=== PATIENT | female | born 1950 | race Caucasian/White ===

== ENCOUNTER → 2021-06-09 | Outpatient (CLI) | payer MEDICARE, BC ==
--- NOTE | 2021-06-09 11:36 | KCIC ---
EXAM: Lumbar spine MRI without contrast. HISTORY: Right side. Back pain. TECHNIQUE: Multiplanar, multisequence magnetic resonance imaging of the lumbar spine was performed wi thout contrast. COMPARISON: 10/05/2012. FINDINGS: There is a moderate acute or subacute compression fracture of T11. There is 3 mm retropulsi on of the posterior superior cortex into the central canal, with minimal associated central canal carlos enrique nosis. No additional acute or subacute fracture is seen. There is S-shaped lumbar scoliosis. There is 4 mm grade 1 anterolisthesis of L4 on L5. There is 2 mm retrolisthesis of L2 on L3. There is degenerative endplate remodeling with disc space narrowing and o steophytosis primarily at L5-S1. There is no suspicious osseous lesion. There are few benign osseous hemangiomas. There is a small Tarlov cyst within the sacral canal. The conus terminates at L1. There are small simple cyst within the left kidney. Follow-up is not routinely performed for simple c ysts. There is a suspected right extrarenal pelvis. At T12-L1, there is a shallow left paracentral disc protrusion. There is no stenosis. At L1-L2, there is mild bilateral facet arthropathy. There is no stenosis. At L2-L3, there is a disc bulge and endplate remodeling. There is mild right and mild to moderate lef t facet arthropathy. There is hypertrophy of the ligamentum flavum. There is mild retrolisthesis. The re is mild bilateral foraminal stenosis. There is mild central canal stenosis. At L3-L4, there is a disc bulge and endplate remodeling. There is moderate pleural facet arthropathy. There is hypertrophy of the ligamentum flavum. There is mild left foraminal stenosis. There is mild central canal stenosis. At L4-L5, there is a disc bulge and endplate remodeling. There is moderate to severe bilateral facet arthropathy. There is hypertrophy of the ligamentum flavum. There is grade 1 anterolisthesis. There i s mild bilateral foraminal stenosis. There is moderate central canal stenosis. At L5-S1, there is a posterior central disc protrusion and right lateral recess to extra foraminal di sc protrusion superimposed on a disc bulge and endplate osteophytosis. There is mild right facet arth ropathy. There is moderate right and mild left foraminal stenosis. IMPRESSION: 1. Moderate acute or subacute compression fracture of T11. There is minimal retropulsion of the conrad x and central canal stenosis at this level. 2. Multilevel degenerative change involving the lumbar spine, described in detail above. This results in stenosis at the aforementioned levels. Electronically signed by: Yessenia Winkler MD (06/09/2021 11:33 AM) [id number]
== END ==
LOC: KCIC MRI 09:58
PROVIDERS: ATTEND Physician Assistant Medical
DX: M47.816 Spondylosis without myelopathy or radiculopathy, lumbar region (principal); M48.54XA Collapsed vertebra, not elsewhere classified, thoracic region, initial encounter for fracture; M51.27 Other intervertebral disc displacement, lumbosacral region; M48.8X7 Other specified spondylopathies, lumbosacral region; G96.191 Perineural cyst; M48.07 Spinal stenosis, lumbosacral region; M43.16 Spondylolisthesis, lumbar region; M41.86 Other forms of scoliosis, lumbar region; M54.41 Lumbago with sciatica, right side
CPT/HCPCS: 72148

== ENCOUNTER → 2021-06-19 | Outpatient (CLI) | payer MEDICARE, BC ==
[~2021-06-19] MED LIST: ASCO500C PO; CELE100C PO; CYCL10TA19 PO; LOSA-73 PO; OMEP40CA7 PO; SUCR1TAB PO; TRAM50TA PO; VALA500T9 PO; ZINC50TA39 PO; [UNRECOGNIZED DRUG - CODE] PO; muscle relaxer PO
--- NOTE | 2021-06-19 14:27 | PDOC1 ---
INITIAL PAIN CONSULT DATE OF SERVICE: DOS: DATE: 06/19/21 TIME: 14:15 CHIEF COMPLAINT: Chief Complaint: Low back and right lower extremity pain HISTORY OF PRESENT ILLNESS: 70-year-old female presents with history of pain low back right lower extremity for about 1 month and she noticed the pain beginning on May 19, 2021 when she was helping a friend of hers who has a walker and was lifting the walker ove r the backseat of a car, standing position reaching forward and felt a significant pain in the low back radiating to the right lower extremity. Patient reports that that she had no significant pain like that prior to this incident and has been significant since then. Patient reports her leg now gets weak on the right side worse with walking standing changing positions bending forward and lifting up repetitive motions or stooping patient reports it wakes her from sleep at night multiple times does not affect her bowel bladder control but does affect her ability to walk although she is not using any assistive devices to ambulate. Patient reports pain is constant sharp stabbing alternating in the back throbbing and shooting in the center in the low back radiating into the right leg posterior gluteus lateral thigh anterior thigh medial thigh posterior thigh and posterior calf. Patient also ports she has pain on the top of the foot on the right side. Patient reports no loss of motor function with significant fatigability of the right leg feels unstable when walking more than about 10minutes because her right leg becomes weak at that p oint. Patient have an MRI scan showing a acute to subacute compression fracture of T11 with a 3 mm retropulsion of the superior posterior cortex into the central canal also does bulging and endplate remodeling at L4-5 as well as L5-S1 with posterior central disc protrusion right lateral recess extraforaminal disc protrusion superimposed on disc bulge and endplate osteophytosis at L5-S1. Patient reports no bowel or bladder incontinence. Patient's been doing chiropractic treatments which are helpful but only temporary also doing stretching strength and exercise on her own at home which again are helpful but only very temporary. Patient been taking [id number] Tylenol which has not been significantly decreasing the pain. PAST MEDICAL HISTORY: PMH: Arthritis, hypertension, headaches, skin cancer, hypothyroidism PREVIOUS SURGERIES: Past Surgical Hx: Thyroidectomy, tonsillectomy, , skin cancer excisions CURRENT MEDICATIONS: Current Meds: Active Scripts Medications Dose Route/Sig Max Daily Dose Days Date Category Zinc 50 Mg Tablet 1 Tab PO DAILY 30 06/19/21 Reported Vitamin C (Ascorbic Acid) 500 Mg Capsule.er 1 Cap PO DAILY 30 06/19/21 Reported Maximum D3 (Cholecalciferol (Vitamin D3)) 325 Mcg Capsule 325 Mcg PO DAILY 06/19/21 Reported [muscle relaxer] Unknown Dose PO HS 06/19/21 Reported Losartan Potassium 50 Mg Tablet 50 Mg PO DAILY 06/19/21 Reported ALLERGIES; Allergies: Coded Allergies: propoxyphene (Verified Allergy, Intermediate, Rash, 06/19/21) FAMILY HISTORY: Family Hx: Lymphoma, osteoarthritis SOCIAL HISTORY: Social Hx: Patient does not drink alcohol does not smoke not use any illegal illicit recreational drugs is lives with her spouse lives locally in [facility] REVIEW OF SYSTEMS: ROS: Positive for those items mentioned in history of present illness, all systems are reviewed, otherwise negative ,and are complete full and well-documented on patient's chart. PHYSICAL EXAM: VS: Pressure is 117/82 pulse 79 respirations 18 temperature 97.6 F height is 5 feet 3 inches weight is 177 pounds PE: PHYSICAL EXAMINATION: GENERAL: The patient is awake, alert, oriented, appropriate, very pleasant in demeanor HEENT: Shows normocephalic, atraumatic. Extraocular movements are intact and symmetrical. Oral cavity: Mucous membranes moist and pink. Dentition is intact. NECK: Shows anterior throat supple without palpable lymphadenopathy noted. Swallow reflex symmetrical. CHEST: Shows normal on inspection. Breath sounds are clear bilaterally, distant but no rales rhonchi or wheezes auscultated. HEART: Shows S1, S2 clear. No murmurs auscultated. ABDOMEN: Soft, nontender, nondistended. No palpable organomegaly is noted. BACK: Shows spine grossly in the midline. Normal-appearing cervical lordotic curvature. There is increased thoracic kyphosis, with moderate tenderness with palpation over the inferior aspect spinous processes but without radiation, some mild flattening of the lumbar lordotic curvature. Lumbar paraspinous muscles show symmetrical on inspection, on palpation shows some moderate tenderness diffusely throughout the upper, middle and lower distribution of the paraspinous muscles bilaterally and also into the lower thoracic paraspinous musculature, firm and tender, but without specific trigger points, without radiation of pain. The patient has good rotational motion of the lumbar spine, both laterally as well as extension and flexion without significant difficulty. No tenderness over the spinous processes, sacrum or sacroiliac regions. EXTREMITIES: Lower extremities show deep tendon reflexes 2 in the patellar and tendo calcaneus tendons. Motor exam is 4 on a scale of 5 with right dorsiflexion, extension, quadriceps and hamstring flexion and 5/5 on the left. Peripheral pulses are 1+ posterior tibial. No peripheral edema is noted bilaterally. Lower extremities are warm and dry to touch, equal in color and appearance. Straight leg raise noted to be positive on the right about 45 degrees, left side is negative. Gaenslen's and Dutch's maneuvers are negative bilaterally. The patient is able to stand, such as difficulty trying to stand on her toes and put all of her weight on her right leg walks with a slight favoring gait does appear to favor the right lower extremity but does not use any assistive vices to ambulate such as canes or walkers. SKIN: Shows warm and dry, good turgor. No edema. No sores, rashes or bruising throughout. IMPRESSION: Impression: 70-year-old female with 1 month history increasing pain low back right lower extremity radicular fashion, with T11 vertebral fracture as well. MRI scan lumbar spine as noted Arthritis Hypertension Skin cancer Osteoporosis Hypothyroidism Plan: Options were discussed with the patient including conservative medical managements physical therapies and interventional techniques. Patient like to pursue interventional techniques. We discussed a lumbar epidural steroid injection using descriptions as well as anatomical models to describe the procedure. Risks were discussed including but not limited to: Bleeding, infection, possibility of epidural hematoma and subsequent neurological compromise, dural puncture, headaches, spinal cord and/or nerve damage, side effects of steroid medication, and poor results regarding pain control. Patient understands and wished to proceed. Patient return to clinic in approximately 2 weeks for follow-up, was counseled as to return appointment, activity level, and side effect to be aware of. Procedure is lumbar epidural steroid injection under local anesthetic using sterile prep and drape at the L4-5 level using C-arm fluoroscopic guidance in both AP and lateral views medications injected is 120 mg Depo-Medrol +10mL preservative-free normal saline and 2 mL contrast- condition at discharge is stable patient tolerated procedure well had no complications. TIKI FERNANDEZ MD Jun 19, 2021 14:26
--- NOTE | 2021-06-19 14:28 | PDOC4 ---
Procedure Note: ICD 10 Code: ICD 10 Code: M54.16 M51.36 M48.06 Procedure Note: Patient was consented for lumbar epidural steroid injection with fluoroscopic guidance. Risks were discussed including but not limited to: Bleeding, infection, possibility of epidural hematoma and subsequent neurological compromise, dural puncture, headaches, spinal cord and/or nerve damage, side effects of steroid medication, and poor results regarding pain control. Patient understands and wished to proceed. Procedure is lumbar epidural steroid injection under local anesthetic using ster ile prep and drape at the L4-5 level using C-arm fluoroscopic guidance in both AP and lateral views medications injected is 120 mg Depo-Medrol +10mL preservative-free normal saline and 2 mL contrast- condition at discharge is stable patient tolerated procedure well had no complications. TIKI FERNANDEZ MD Jun 19, 2021 14:28
== END | disposition home or self-care (01) ==
LOC: PNCL 10:00
PROVIDERS: ATTEND Anesthesiology
DX: M51.16 Intervertebral disc disorders with radiculopathy, lumbar region (principal); M48.061 Spinal stenosis, lumbar region without neurogenic claudication; M19.90 Unspecified osteoarthritis, unspecified site; I10 Essential (primary) hypertension; E03.9 Hypothyroidism, unspecified; M81.0 Age-related osteoporosis without current pathological fracture; Z85.828 Personal history of other malignant neoplasm of skin; Z79.899 Other long term (current) drug therapy; Z88.8 Allergy status to other drugs, medicaments and biological substances; Z98.890 Other specified postprocedural states
CPT/HCPCS: 62323

== ENCOUNTER 2021-06-20 08:05 | Outpatient (CLI) | payer MEDICARE, BC ==
[~2021-06-20] VITALS: Ht 160 cm; Wt 77.7 kg
[2021-06-20] VITALS (8 sets, daily range): BP systolic 100–136; BP diastolic 69–80
[~2021-06-20 08:05] MED LIST changes: -CELE100C PO; -CYCL10TA19 PO; -OMEP40CA7 PO; -SUCR1TAB PO; -TRAM50TA PO; -VALA500T9 PO
[2021-06-20] MEDS ORDERED: OMEP40CA7 PO (08:23)
[2021-06-20] MEDS ORDERED: CELE100C PO (08:23)
[2021-06-20] MEDS ORDERED: VALA500T9 PO (08:23)
[2021-06-20] MEDS ORDERED: CYCL10TA19 PO (08:23)
[2021-06-20] MEDS ORDERED: TRAM50TA PO (08:23)
[2021-06-20] MEDS ORDERED: SUCR1TAB PO (08:23)
[2021-06-20] MEDS ORDERED: LIDOCAINE WITH 8.4% SOD BICARB 3 ML DISP.SYRIN. ONE (08:30)
[2021-06-20] MEDS ORDERED: IOHEXOL 240 MG/ML 50ML VIAL. ONE (08:36)
[2021-06-20 08:38] LABS: BASO % 0 % (0-3); EOS # 0.1 x10^3/uL (0.0-0.7); EOS % 1 % (0-3); HEMATOCRIT 43.1 % (36.0-47.0); HEMOGLOBIN 14.2 g/dL (12.0-15.5); LYMPH # 1.2 x10^3/uL (1.0-4.8); LYMPH % 13 % (24-48); MEAN CORPUSCULAR HEMOGLOBIN 30 pg (25-35); MEAN CORPUSCULAR HGB CONC 33 g/dL (31-37); MEAN CORPUSCULAR VOLUME 90 fL (79-100); MONO # 0.8 x10^3/uL (0.0-1.1); MONO % 9 % (0-9); NEUT # 7.4 x10^3/uL (1.8-7.7); NEUT % 77 % (31-73); PLATELET COUNT 235 x10^3/uL (140-400); RED BLOOD COUNT 4.79 x10^6/uL (3.50-5.40); RED CELL DISTRIBUTION WIDTH 13.7 % (11.5-14.5); WHITE BLOOD COUNT 9.5 x10^3/uL (4.0-11.0)
[2021-06-20] MEDS ORDERED: ceFAZolin SODIUM IV Push 1 GM VIAL. IVP ONE ×2 (08:39→08:45)
[2021-06-20] MEDS ORDERED: fentaNYL PF VIAL 100 MCG/2 ML VIAL ONE (08:39)
[2021-06-20] MEDS ORDERED: MIDAZOLAM HCL/PF 5 MG/5 ML VIAL. ONE (08:39)
[2021-06-20] MEDS ORDERED: fentaNYL PF VIAL 100 MCG/2 ML VIAL IV ONE (08:45)
[2021-06-20] MEDS ORDERED: LIDOCAINE WITH 8.4% SOD BICARB 3 ML DISP.SYRIN. IJ ONE (08:45)
[2021-06-20] MEDS ORDERED: MIDAZOLAM HCL/PF 5 MG/5 ML VIAL. IV ONE (08:45)
[2021-06-20 08:46] LABS: PROTHROMBIN TIME PATIENT 12.4 SEC (11.7-14.0)
[2021-06-20] MEDS ORDERED: IOHEXOL 240 MG/ML 50ML VIAL. IJ ONE (09:15)
--- NOTE | 2021-06-20 11:37 | NUR ---
pt ambulated and tolerated PO. discharge instructions reviewed with pt and family. Pt discharged to home in private vehicle.
--- NOTE | 2021-06-23 14:32 | RAD ---
06.23.2021 PROCEDURES: 1. Fluoroscopic guided T11 kyphoplasty. Clinical Indication: Pathological T11 compression fracture, secondary to bone demineralization/osteop orosis/osteopenia. The patient has severe pain, refractory to conservative treatment measures, limiti ng activities of daily living. The procedure, risks, and complications, to include bleeding, infection, cement embolization, damage to the vertebral endplates, compression of the spinal canal (due to hemorrhage or cement) and cement extrusion were explained to the patient and they understood and wished to proceed. Consent form sign ed. The lumbosacral region was prepped and draped using maximal sterile technique and 1% Xylocaine used f or local topical anesthesia and deep periosteal anesthesia. Pre-procedural antibiotics were administered. Sedation: Conscious sedation was performed for 32 minutes. Sedation was carried while the patient wa s continually monitored by a member of the Radiology nursing staff. Continual cardiopulmonary monito ring was carried out during the procedure. The patient tolerated the procedure well and there were n o immediate complications. Utilizing careful fluoroscopic biplane positioning, the T11 pedicles were identified. Using a left sided unilateral approach, a trocar needle was advanced into the anterior third of the T 11 vertebral body. Needle placement was confirmed in both the AP and lateral projections. Next the introducer stylet was removed. A kyphoplasty balloon was placed into the vertebral body and the coaxial needle was withdrawn. The balloon was inflated under fluoroscopic guidance to insure that there was no damage to the vertebral body endplates. When an adequate cavity had been formed by the ballon it was deflated and removed through the coaxial needle. Under very careful biplane fluoroscopic guidance, polymethylmethacrylate was carefully injected into the T11 vertebral body filling the cavity formed by the balloon as well as some of the surrounding tr abeculae. No abnormal extravasation was identified. Following the cement injections, the needle was removed, pressure placed, and hemostasis obtained. No evidence of cement extrusion into the tract was identified. The patient tolerated the procedure well and will be observed in the recovery room area. Fluoroscopy time: 6.7 minutes Dose area product 80 Carreon centimeter squared IMPRESSION: Fluoroscopic guided percutaneous left sided unilateral T11 kyphoplasty. Electronically signed by: Matheus Wayne MD (06/23/2021 2:29 PM) [id number]
== END 2021-06-20 11:40 | disposition home or self-care (01) ==
LOC: INTRAD 08:05
PROVIDERS: ATTEND Physician Assistant Medical
DX: M80.08XA Age-related osteoporosis with current pathological fracture, vertebra(e), initial encounter for fracture (principal); I10 Essential (primary) hypertension; K21.9 Gastro-esophageal reflux disease without esophagitis; M19.90 Unspecified osteoarthritis, unspecified site; F41.9 Anxiety disorder, unspecified; F32.9 Major depressive disorder, single episode, unspecified; Z79.899 Other long term (current) drug therapy; Z98.890 Other specified postprocedural states; Z88.8 Allergy status to other drugs, medicaments and biological substances
CPT/HCPCS: 22513; 36415; 85025; 85610; 99152; 99153; C1713; J0690; J2250; J3010; J3490; Q9966

== ENCOUNTER → 2021-07-03 | Outpatient (CLI) | payer MEDICARE, BC ==
[2021-06-20 11:04] VITALS: BP 136/69
[~2021-07-03] MED LIST changes: +CELE100C PO; +CYCL10TA19 PO; +IOHEXOL 180 MG/ML 10 ML VIAL. ONE; +OMEP40CA7 PO; +SUCR1TAB PO; +TRAM50TA PO; +VALA500T9 PO; +methylPREDNISolone ACETATE 80 MG/ML VIAL. ONE
--- NOTE | 2021-07-03 10:45 | PDOC ---
Progress Note - Pain Clinic Date of Service: DOS: DATE: 07/03/21 TIME: 10:39 Diagnosis: Dx: Lumbar radiculopathy with lumbar degenerative disc disease and lumbar spinal stenosis Cervical radiculopathy with cervical degenerative disc disease Compression fracture of T11 status post kyphoplasty History or Present Illness: HPI: 70-year-old female returns for follow-up status post lumbar epidural steroid injection x1. Patient reports near 100% improvement after the injection with increased mobility walking greater distances sleeping better as well. Patient reports her chief complaint today however is pain in the base of the neck and shoulders more on the left than the right but present bilaterally radiating to left upper extremity the anterior deltoid as well as lateral deltoid into the arm and hand but without numbness or tingling patient reports the pain is also noticeable in the left scapular region more noticeably with repetitive motions reaching forward weightbearing and reaching overhead with her left arm some on the right side as well but mostly on the left patient reports it is becoming much more noticeable now that her low back right leg is doing much better, but generally does not awaken her from sleep most nights. Patient reports no loss of motor function but significant fatigability of the left arm as well as the upper back with activity. Patient rates her pain as a 4 on a scale of 10, at it s worst, 4 on an average and is 0 at its least, and is a 3 today. Patient reports no loss of motor function but significant fatigability as noted. Physical Exam: VS: Blood pressure is 132/81 pulse 77 respirations 18 temperature 97.6 F weight is 175 pounds PE: PHYSICAL EXAMINATION: GENERAL: The patient is awake, alert, oriented, appropriate, very pleasant in demeanor HEENT: Shows normocephalic, atraumatic. Extraocular movements are intact and symmetrical. Oral cavity: Mucous membranes moist and pink. NECK: Shows anterior throat supple without palpable lymphadenopathy noted. Swallow reflex symmetrical. CHEST: Shows normal on inspection. Breath sounds are clear bilaterally, no rales or rhonchi. HEART: Shows S1, S2 clear. No murmurs auscultated. ABDOMEN: Soft, nontender, nondistended. No palpable organomegaly is noted. BACK: Shows spine grossly in the midline. Normal-appearing cervical lordotic curvature. Cervical paraspinous muscles show symmetrical inspection, on palpation some moderate tenderness diffusely in the middle and inferior aspect of the cervical paraspinous muscular into the superior medial trapezius on the left not the right. No asymmetry no trigger points patient shows good rotation motion cervical spine with some moderate tenderness with far left lateral rotation past 45 degrees not with right lateral rotation extension with some moderate pain in the left lower base of the neck but not with forward flexion. There is slightly increased thoracic kyphosis, some minor flattening of the lumbar lordotic curvature. Lumbar paraspinous muscles show symmetrica for l on inspection, on palpation shows some moderate tenderness diffusely throughout the upper, middle and lower distribution of the paraspinous muscles, but without specific trigger points, without radiation of pain. The patient has good rotational motion of the lumbar spine, both laterally as well as extension and flexion without significant difficulty. No tenderness over the spinous processes, sacrum or sacroiliac regions. EXTREMITIES: Lower extremities show deep tendon reflexes 2+ in the patellar and tendo calcaneus tendons. Motor exam is 4 on a scale of 5 with right dorsiflexion, extension, quadriceps and hamstring flexion and 5/5 on the left. Peripheral pulses are 1+ posterior tibial. No peripheral edema is noted bilaterally. Lower extremities are warm and dry to touch, equal in color and appearance. Upper extremity show deep tendon reflexes 2+ bicep tricep tendons, motor exam is 4 to scale 5 with left mobile sales assistant strength bicep tricep flexion 5 out of 5 on the right. Shoulder shrug is strong and intact without loss of strength on resistance bilaterally. SKIN: Shows warm and dry, good turgor. No edema. No sores, rashes or bruising throughout. Procedure: Procedure: Options were discussed with patient. Patient's old chart was reviewed as her current medication regimen updated current review of systems updated today as well. We will proceed with a cervical epidural steroid injection today with fluoroscopic guidance. Risks were discussed including but not limited to: Bleed ing, infection, possibility of epidural hematoma and subsequent neurological compromise, dural puncture, headaches, spinal cord and/or nerve damage, side effects of steroid medication, and poor results regarding pain control. Patient understands and wished to proceed. Patient will return to the clinic in approximately 2 weeks for follow-up, was counseled as to return appointment, activity level, and side effect to be aware of. Medication Injected: Med Injected: Procedure cervical epidural steroid injection at the C6-7 level, using local anesthetic under sterile prep and drape using C-arm fluoroscopic guidance under local anesthesia medications injected ;120 mg Depo-Medrol +5 mL normal saline and 2 mL contrast; condition at discharge is stable patient tolerated procedure well. and had no complications Condition at Discharge: Condition at Discharge: Condition at discharge stable, patient tolerated procedure well and had no complications. TIKI FERANNDEZ MD Jul 03, 2021 10:45
--- NOTE | 2021-07-03 10:46 | PDOC4 ---
Procedure Note: ICD 10 Code: ICD 10 Code: M54.12 M50.30 Procedure Note: Patient was consented for cervical epidural steroid injection with fluoroscopic guidance. Risks were discussed including but not limited to: Bleeding, infection, possibility of epidural hematoma and subsequent neurological compromise, dural puncture, headaches, spinal cord and/or nerve damage, side effects of steroid medication, and poor results regarding pain control. Patient understands and wished to proceed. Procedure cervical epidural steroid injection at the C6-7 level, using local anesthetic under sterile prep and drape using C-arm fluoroscopic guidance under local anesthesia medications injected ;120 mg Depo-Medrol +5 mL normal saline and 2 mL contrast; condition at discharge is stable patient tolerated procedure well. and had no complications. TIKI FERNANDEZ MD Jul 03, 2021 10:46
== END | disposition home or self-care (01) ==
LOC: PNCL 09:49
PROVIDERS: ATTEND Anesthesiology
DX: M50.10 Cervical disc disorder with radiculopathy, unspecified cervical region (principal); M54.12 Radiculopathy, cervical region; M51.16 Intervertebral disc disorders with radiculopathy, lumbar region; M48.061 Spinal stenosis, lumbar region without neurogenic claudication; I10 Essential (primary) hypertension; K21.9 Gastro-esophageal reflux disease without esophagitis; M19.90 Unspecified osteoarthritis, unspecified site; F41.9 Anxiety disorder, unspecified; F32.9 Major depressive disorder, single episode, unspecified; Z85.828 Personal history of other malignant neoplasm of skin; Z79.899 Other long term (current) drug therapy; Z98.890 Other specified postprocedural states; Z88.8 Allergy status to other drugs, medicaments and biological substances
CPT/HCPCS: 62321; J1040; Q9965

== ENCOUNTER → 2021-10-09 | Outpatient (CLI) | payer MEDICARE, BC ==
[2021-06-20 11:04] VITALS: BP 136/69
[~2021-10-09] MED LIST changes: +DEXAMETHASONE PRES.FREE 10 MG/ML VIAL. ONE; -methylPREDNISolone ACETATE 80 MG/ML VIAL. ONE
--- NOTE | 2021-10-09 11:52 | PDOC ---
Progress Note - Pain Clinic Date of Service: DOS: DATE: 10/09/21 TIME: 11:47 Diagnosis: Dx: Cervical radiculopathy with cervical degenerative disc disease Lumbar radiculopathy lumbar degenerative disease and lumbar spinal stenosis History or Present Illness: HPI: 71-year-old female returns for follow-up status post lumbar epidural steroid injection and cervical epidural steroid injection May and July 2021. Patient did very well with hundredths and improvement in her back and leg with some pain returning down the low back and the right lower extremity but her chief complaint today is pain in the base the neck and shoulders slightly more on the right than the left but present bilaterally rating to the upper extremities rated as a 9 on scale 10 is worse over the past week 8 on average 6 at its least and is a 6 today. Patient report is worse with walking standing changing positions getting up from bed in the morning using her right arm to support her weight also reaching repetitive motions reaching overhead with her right arm and lifting items repetitively. Patient reports is aching and sharp and shooting in the right arm and shoulders bilaterally stabbing in the base of the neck as well. Patient reports no loss of motor function no bowel or bladder incontinence. Physical Exam: VS: Blood pressure 121/83 pulse 81 respirations 18 temperature is 98.7 F weight is 177 pounds. PE: PHYSICAL EXAMINATION: GENERAL: The patient is awake, alert, oriented, appropriate, very pleasant in demeanor HEENT: Shows normocephalic, atraumatic. Extraocular movements are intact and symmetrical. Oral cavity: Mucous membranes moist and pink. Dentition is intact. NECK: Shows anterior throat supple without palpable lymphadenopathy noted. Swallow reflex symmetrical. CHEST: Shows normal on inspection. Breath sounds are clear bilaterally. HEART: Shows S1, S2 clear. No murmurs auscultated. ABDOMEN: Soft, nontender, nondistended. No palpable organomegaly is noted. BACK: Shows spine grossly in the midline. Normal-appearing cervical lordotic curvature. Cervical paraspinous muscles show symmetrical inspection, on pa lpation some moderate tenderness diffusely bilaterally diffusely without significant radiation. There is slightly increased thoracic kyphosis, some minor flattening of the lumbar lordotic curvature. Lumbar paraspinous muscles show symmetrical on inspection, on palpation shows some moderate tenderness diffusely throughout the upper, middle and lower distribution of the paraspinous muscles, but without specific trigger points, without radiation of pain. The patient has good rotational motion of the lumbar spine, both laterally as well as extension and flexion without significant difficulty. EXTREMITIES: Lower extremities show deep tendon reflexes 2+ in the patellar and tendo calcaneus tendons. Motor exam is 4 on a scale of 5 with right dorsiflexion, extension, quadriceps and hamstring flexion and 5/5 on the left. Peripheral pulses are 1+ posterior tibial. No peripheral edema is noted bilaterally. Lower extremities are warm and dry. Upper extremities show deep tendon reflexes 2+ in the bicep tricep tendons, motor exam is strong with advertising operations coordinator strength rated at 5 out of 5 on the left and 4-5 on the right. Biceps triceps are 4-5 right 5 out of 5 left as well. Peripheral pulses are 2+ radial. Shoulder shrug is strong and intact without loss of strength on resistance bilaterally. SKIN: Shows warm and dry, good turgor. No edema. No sores, rashes or bruising throughout. Procedure: Procedure: Options discussed with patient. Patient's old chart was reviewed as her current medication regimen updated current review of systems updated today as well. We will proceed with a cervical epidural steroid injection today with fluoroscopic guidance risks were discussed including but not limited to: Bleeding, infection, possibility of epidural hematoma and subsequent neurological compromise, dural puncture, headaches, spinal cord and/or nerve damage, side effects of steroid medication, and poor results regarding pain control. Patient understands and wished to proceed. Patient will return to the clinic in approximate 2 weeks for follow-up, was counseled as to return appointment, active level, and side effects to be aware of. Medication Injected: Med Injected: Procedure cervical epidural steroid injection at the C6-7 level, using local anesthetic under sterile prep and drape using C-arm fluoroscopic guidance under local anesthesia medications injected ; 20 mg dexamethasone +5 mL normal saline and 2 mL contrast; condition at discharge is stable patient tolerated procedure well. and had no complications Condition at Discharge: Condition at Discharge: Condition at discharge is stable, paced tolerated the procedure well and had no complications. TIKI FERNANDEZ MD October 09, 2021 11:52
--- NOTE | 2021-10-09 11:53 | PDOC4 ---
Procedure Note: ICD 10 Code: ICD 10 Code: M54.12 M50.30 Procedure Note: Patient was consented for cervical epidural steroid injection with fluoroscopic guidance. Risks were discussed including but not limited to: Bleeding, infection, possibility of epidural hematoma and subsequent neurological compromise, dural puncture, headaches, spinal cord and/or nerve damage, side effects of steroid medication, and poor results regarding pain control. Patient understands and wished to proceed. Procedure cervical epidural steroid injection at the C6-7 level, using local anesthetic under sterile prep and drape using C-arm fluoroscopic guidance under local anesthesia medications injected ; 20 mg dexamethasone +5 mL normal saline and 2 mL contrast; condition at discharge is stable patient tolerated procedure well. and had no complications TIKI FERNANDEZ MD October 09, 2021 11:53
== END | disposition home or self-care (01) ==
LOC: PNCL 10:02
PROVIDERS: ATTEND Anesthesiology
DX: M50.10 Cervical disc disorder with radiculopathy, unspecified cervical region (principal); M54.12 Radiculopathy, cervical region; M51.16 Intervertebral disc disorders with radiculopathy, lumbar region; M48.061 Spinal stenosis, lumbar region without neurogenic claudication; K21.9 Gastro-esophageal reflux disease without esophagitis; M81.0 Age-related osteoporosis without current pathological fracture; F41.9 Anxiety disorder, unspecified; F32.9 Major depressive disorder, single episode, unspecified; I10 Essential (primary) hypertension; M19.90 Unspecified osteoarthritis, unspecified site; Z85.828 Personal history of other malignant neoplasm of skin; Z79.899 Other long term (current) drug therapy; Z98.890 Other specified postprocedural states; Z88.8 Allergy status to other drugs, medicaments and biological substances
CPT/HCPCS: 62321; J1100; Q9965

== ENCOUNTER → 2021-10-24 | Outpatient (CLI) | payer MEDICARE, BC ==
[2021-06-20 11:04] VITALS: BP 136/69
[~2021-10-24] MED LIST changes: -DEXAMETHASONE PRES.FREE 10 MG/ML VIAL. ONE; -IOHEXOL 180 MG/ML 10 ML VIAL. ONE
--- NOTE | 2021-10-24 12:02 | KCIC ---
EXAM: Cervical spine MRI without contrast. HISTORY: Cervical radiculopathy. TECHNIQUE: Multiplanar, multisequence magnetic resonance imaging of the cervical spine was performed without contrast. COMPARISON: None. FINDINGS: There is slight degenerative anterolisthesis of C3 on C4, C4 on C5, C6 on C7 and C7 on T1. There is mild multilevel endplate remodeling. There are few benign osseous hemangiomas. This includes an atypical hemangioma with increased signal on inversion recovery images within T2. No suspicious o sseous lesion is seen. No suspicious spinal cord lesion is seen. At C2-C3, there is a minimal posterior central disc protrusion. There is mild bilateral facet arthrop athy. There is no stenosis. At C3-C4, there is moderate right greater than left facet arthropathy. There is mild right foraminal stenosis. At C4-C5, there is endplate remodeling. There is mild bilateral facet arthropathy. There is no stenos is. At C5-C6, there is a posterior central disc protrusion superimposed on endplate remodeling. There is moderate right and mild left facet arthropathy. 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 At C6-C7, there is severe right and mild left facet arthropathy. There is no stenosis. IMPRESSION: Multilevel degenerative change involving the cervical spine, described in detail above. T his is associated with mild right foraminal stenosis at C3-C4. No spinal cord lesion is seen. Electronically signed by: Yessenia Winkler MD (10/24/2021 12:00 PM) [id number]
== END ==
LOC: KCIC MRI 09:45
PROVIDERS: ATTEND Physician Assistant Medical
DX: M47.22 Other spondylosis with radiculopathy, cervical region (principal); M48.02 Spinal stenosis, cervical region; M43.12 Spondylolisthesis, cervical region; M48.8X2 Other specified spondylopathies, cervical region; M50.322 Other cervical disc degeneration at C5-C6 level; D18.09 Hemangioma of other sites
CPT/HCPCS: 72141